=== PATIENT | male | born 1990 | race African-American/Black ===

== ENCOUNTER 2017-08-27 09:36 | Observation (INO) | payer OTHER ==
[~2017-08-27 09:36] MED LIST: ISOVUE-370 76%-LOCM 1 ML ONE
[2017-08-27 10:08] LABS: #Eosinphils 0.1 thou/uL (0.0-0.7); #Lymphocytes 3.3 thou/uL (1.20-3.40); #Monocytes 1.3 thou/uL (0.11-0.59); %Basophils 0.2 % (0.0-1.0); %Eosinophils 0.3 % (0.0-10.0); %Lymphocytes 16.8 % (21.0-51.0); %Monocytes 6.6 % (0.0-10.0); %Neutrophils 76.2 % (42.0-75.0); Hemoglobin 12.1 g/dL (14.0-18.0); Mean Corpuscular Hemoglobin 30.5 pg (27.0-31.0); Mean Corpuscular Volume 92.2 fl (80.0-94.0); Mean Platelet Volume 6.5 fL (7.4-10.4); Platelet Count 367 thou/uL (130-400); RBC Distribution Width 14.2 % (11.5-14.5); Red Blood Cell (RBC) Count 3.96 mill/uL (4.70-6.10); White Blood Cell (WBC) Count 19.7 thou/uL (4.8-10.8)
[2017-08-27 10:31] LABS: ALT (SGPT) 8 U/L (8-55); AST (SGOT) 11 U/L (5-34); Albumin 3.6 g/dL (3.5-5.0); Alkaline Phosphatase 69 U/L (40-150); Anion Gap 12 mmol/L (10-20); BUN (Urea Nitrogen) 11 mg/dL (8.9-20.6); Bilirubin, Total 0.4 mg/dL (0.2-1.2); Calc. Creatinine Clearance 0 mL/min (70-130); Calcium 9.2 mg/dL (7.8-10.44); Carbon Dioxide 25 mmol/L (22-29); Chloride 101 mmol/L (98-107); Estimated GFR-MDRD Greater than 90; Globulin 3.8 g/dL (2.4-3.5); Glucose 91 mg/dL (70-105); Potassium 3.4 mmol/L (3.5-5.1); Protein, Total 7.4 g/dL (6.0-8.3); Sodium 135 mmol/L (136-145)
[2017-08-27] MEDS ORDERED: Morphine 4 MG/ML VIAL ONE (10:36)
[2017-08-27] MEDS ORDERED: Piperacillin/Tazobactam 4.5 GM in Sodium Chloride 0.9% 100 ML IVPB SCH (12:45)
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
[2017-08-27] MEDS ORDERED: HYDROmorphone 0.5 MG/0.5 ML SYRINGE ONE ×5 (13:35→19:34)
[2017-08-27 15:32] LABS: INR-International Normal Ratio 1.2; PTT 37.9 SEC (22.9-36.1); Prothrombin Time 15.4 SEC (12.0-14.7)
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
[2017-08-27] MEDS: Sodium Chloride 0.9% 1,000 ML IV SCH (22:30)
[2017-08-27] MEDS ORDERED: Dextrose 50% Abboject 50 ML SYRINGE SLOW IVP PRN (22:35)
[2017-08-27] MEDS ORDERED: Ondansetron HCl/PF 4 MG/2 ML Vial IVP PRN (22:35)
[2017-08-27] MEDS ORDERED: Ondansetron ODT 4 MG TAB PO PRN (22:35)
[2017-08-27] MEDS ORDERED: Dextrose 5% in Water 1,000 ML IV PRN (22:35)
[2017-08-27 22:50] VITALS: BMI 25.8
[2017-08-27] MEDS ORDERED: Famotidine 20 MG TAB PO SCH (23:15)
[2017-08-27] MEDS: Morphine 2 MG/ML SYRINGE IVP PRN (23:17)
[2017-08-27] MEDS: Ketorolac Tromethamine 30 MG/ML VIAL IVP SCH (23:19)
--- NOTE | 2017-08-27 23:37 | PRG ---
DATE OF SERVICE: 08/27/2017 SUBJECTIVE: This is a 26-year-old gentleman who was admitted by our service earlier today for concer ns of a right lower quadrant abscess. The patient is awaiting admission to surgical floor at this [facility]. He states the pain is stable. He has received IV antibiotics and IV fluids. He vocalized no co mplaints this evening. OBJECTIVE: VITAL SIGNS: Reviewed and stable. GENERAL: The patient is resting in bed, in no acute distress. LUNGS: Breathing is nonlabored. ABDOMEN: Soft with right lower quadrant tenderness. No signs of peritonitis. No guarding or rigidi ty. ASSESSMENT AND PLAN: As documented in the history and physical. Continue care as ordered. He is to have IR drain placement tomorrow. Patient will be n.p.o. after midnight.
[2017-08-28] MEDS: Piperacillin/Tazobactam 4.5 GM in Sodium Chloride 0.9% 100 ML IVPB SCH ×3 (00:06→12:50)
[2017-08-28] MEDS: Sodium Chloride 0.9% 1,000 ML IV SCH (05:28)
[2017-08-28] MEDS: Ketorolac Tromethamine 30 MG/ML VIAL IVP SCH ×3 (05:29→19:52)
[2017-08-28 06:23] LABS: Anion Gap 10 mmol/L (10-20); BUN (Urea Nitrogen) 7 mg/dL (8.9-20.6); Calc. Creatinine Clearance 199 mL/min (70-130); Calcium 8.9 mg/dL (7.8-10.44); Carbon Dioxide 26 mmol/L (22-29); Chloride 104 mmol/L (98-107); Estimated GFR-MDRD Greater than 90; Glucose 85 mg/dL (70-105); Potassium 3.9 mmol/L (3.5-5.1); Sodium 136 mmol/L (136-145)
[2017-08-28 06:45] LABS: Band 1 % (5-11); Hemoglobin 11.1 g/dL (14.0-18.0); Lymphocytes 22 % (21-51); MDiff Complete? YES; Mean Corpuscular HGB CONC 32.6 g/dL (32.0-36.0); Mean Corpuscular Hemoglobin 29.9 pg (27.0-31.0); Mean Corpuscular Volume 91.5 fl (80.0-94.0); Mean Platelet Volume 6.8 fL (7.4-10.4); Monocytes 7 % (0-10); Neutrophil 70 % (42-75); Platelet Count 384 thou/uL (130-400); RBC Distribution Width 13.8 % (11.5-14.5); Red Blood Cell (RBC) Count 3.72 mill/uL (4.70-6.10); White Blood Cell (WBC) Count 20.1 thou/uL (4.8-10.8)
[2017-08-28] MEDS ORDERED: FLU VACC QS2017-18 36 mo. & older 0.5 ML SYRINGE IM ONE (09:00)
[2017-08-28] MEDS ORDERED: Famotidine 20 MG TAB PO SCH (09:00)
[2017-08-28] MEDS ORDERED: Fentanyl 100 MCG/2 ML VIAL ONE (09:09)
[2017-08-28] MEDS ORDERED: Sodium Bicarbonate 2.4 MEQ/5 ML ONE (09:09)
[2017-08-28] MEDS ORDERED: Midazolam HCl 2 mg/2 ml Vial ONE (09:09)
[2017-08-28] MEDS: Morphine 2 MG/ML SYRINGE IVP PRN (09:19)
[2017-08-28 12:18] VITALS: BP 110/68; TEMP 99.3
[2017-08-28 12:22] LABS: Body Fluid Source PERITONEAL FLUID; Clarity Cloudy/Turbid (Clear)
[2017-08-28 12:25] LABS: BF Color Brown; RBC Background Count 0.002
[2017-08-28 12:26] LABS: RBC Count-Automated 853000 /cumm
[2017-08-28 12:35] LABS: BF WBC/Nonhematics Ct. - Manua 560000 /cumm
[2017-08-28 13:47] LABS: BF Segmented Neutrophils 92 %; Cell Count Non Hematic 7 %; Lymphocytes 1 %
--- NOTE | 2017-08-28 13:55 | ULT ---
GALLBLADDER ULTRASOUND: INDICATIONS: Right-sided abdominal pain. Free fluid of the abdomen. Status post aspiration of right lower quadra nt abscess. FINDINGS: There is distention of the gallbladder. No shadowing cholelithiasis. The gallbladder wall is within normal limits at 2 mm. There is nonspecific mild ascites. The common duct is normal, measuring 4 m m. White sign is reported as negative. No focal hepatic lesion. IMPRESSION: 1. Nonspecific mild ascites. Correlate clinically. 2. No cholelithiasis or acute cholecystitis evident sonographically. POS: [facility]
[2017-08-28] MEDS ORDERED: traMADol HCl 50 MG TAB PO PRN ×2 (14:04)
--- NOTE | 2017-08-29 12:26 | CT ---
CT GUIDED PERCUTANEOUS ABSCESS ASPIRATION: CLINICAL HISTORY: Persistent abscess of the right lower quadrant with progressive pain. COMPARISON: Reference is made to a preceding CT exam from 08/27/2017. PROCEDURE: Informed consent was obtained. The patient was escorted to the procedural suite. Certified Wellness Program Coordinator imaging was performed, which did reveal interval development of abnormal inflammatory ascites of the right abdome n, centered within the upper to mid right abdomen, new from CT exam from the previous day. The epice nter of the inflammatory fluid is not present about the abscess of interest. Therefore, prior to the procedure, these findings were telephoned to the patient's surgeon, Alcon Faustin D.O., who request ed to continue with the abscess aspiration, as was previously ordered. This was also explained to th e patient prior to the procedure. After informed consent had been obtained, the right lower quadrant ventral abdominal wall was prepped and draped in the standard sterile fashion. Topical anesthesia with buffered 1% Lidocaine was perfo rmed. The patient was administered conscious sedation through the radiology nurse (Vern Barahona RN ) and monitored accordingly, in stable condition, throughout the duration of the procedure. A small skin incision was made at the site of interest and, subsequently, a 20 gauge needle was advanced with CT fluoroscopy to the leading edge of the abscess. The abscess was then penetrated with a needle an d approximately 50 mL of opaque, light-brown fluid was aspirated. This was placed into a sealed, nisha rile container, and a portion was sent to the laboratory for further analysis. All devices were removed from the patient. Imaging, post procedure, was performed, which revealed no evidence of complications. The abscess collection was decreased in volume, status post drainage. Given the inflammatory findings of the upper to mid abdomen, the patient will undergo follow-up imagi ng, to include gallbladder ultrasound, given the degree of inflammatory fluid about the gallbladder f dorys. IMPRESSION: Technically successful CT guided drainage of right lower quadrant abscess. Laboratory results are pe nding. CODE CR
== END 2017-08-28 18:30 | disposition home or self-care (01) ==
LOC: ERS 09:36 → SURG B 14:42
PROVIDERS: ADMIT Surgery; ATTEND Surgery
PROC: 0W9G3ZX Drainage of Peritoneal Cavity, Percutaneous Approach, Diagnostic (ICD-10-PCS; principal; 2017-08-28)
DX: K65.1 Peritoneal abscess (principal); B96.20 Unspecified Escherichia coli [E. coli] as the cause of diseases classified elsewhere; F17.210 Nicotine dependence, cigarettes, uncomplicated; D72.829 Elevated white blood cell count, unspecified; Z83.3 Family history of diabetes mellitus; Z90.3 Acquired absence of stomach [part of]; Z90.49 Acquired absence of other specified parts of digestive tract; Z98.890 Other specified postprocedural states
CPT/HCPCS: 36415; 49020; 74177; 76705; 77002; 80048; 80053; 82274; 83605; 85025; 85060; 85610; 85730; 87070; 87076; 87077; 87186; 87205; 88173; 89051; 90471; 90682; 96361; 96365; 96366; 96375; 96376; 99156; 99157; G0008; G0378; J1170; J1885; J2250; J2270; J2405; J2543; J3010; J7050; Q2036

== ENCOUNTER 2017-09-01 08:57 | Inpatient (IN) | payer OTHER ==
[2017-09-01 09:33] LABS: Hemoglobin 11.1 g/dL (14.0-18.0); Mean Corpuscular HGB CONC 33.6 g/dL (32.0-36.0); Mean Corpuscular Hemoglobin 30.6 pg (27.0-31.0); Mean Corpuscular Volume 90.9 fl (80.0-94.0); Mean Platelet Volume 6.9 fL (7.4-10.4); Platelet Count 593 thou/uL (130-400); RBC Distribution Width 14.3 % (11.5-14.5); Red Blood Cell (RBC) Count 3.65 mill/uL (4.70-6.10); White Blood Cell (WBC) Count 19.1 thou/uL (4.8-10.8)
[2017-09-01 09:59] LABS: Anisocytosis SLIGHT = 6-15 cells (100X) (0-5/hpf); Band 21 % (5-11); Lymphocytes 3 % (21-51); MDiff Complete? YES; Monocytes 5 % (0-10); Neutrophil 71 % (42-75); PLT Morphology Comment Appears Increased
[2017-09-01 10:21] LABS: ALT (SGPT) 14 U/L (8-55); AST (SGOT) 23 U/L (5-34); Albumin 3.3 g/dL (3.5-5.0); Alkaline Phosphatase 90 U/L (40-150); Anion Gap 16 mmol/L (10-20); BUN (Urea Nitrogen) 8 mg/dL (8.9-20.6); Bilirubin, Total 0.3 mg/dL (0.2-1.2); Calc. Creatinine Clearance 0 mL/min (70-130); Calcium 9.3 mg/dL (7.8-10.44); Carbon Dioxide 23 mmol/L (22-29); Chloride 96 mmol/L (98-107); Estimated GFR-MDRD Greater than 90; Globulin 5.2 g/dL (2.4-3.5); Glucose 112 mg/dL (70-105); Potassium 4.2 mmol/L (3.5-5.1); Protein, Total 8.5 g/dL (6.0-8.3); Sodium 131 mmol/L (136-145)
[2017-09-01] MEDS ORDERED: Ondansetron HCl/PF 4 MG/2 ML Vial ONE (10:27)
[2017-09-01] MEDS ORDERED: Morphine 4 MG/ML Carpuject ONE (10:27)
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
[2017-09-01] MEDS ORDERED: diphenhydrAMINE 50 MG/ML VIAL ONE (10:46)
[2017-09-01] MEDS ORDERED: Iopamidol 370 76% 100 ML VIAL ONE (11:54)
[2017-09-01] MEDS ORDERED: Piperacillin/Tazobactam 4.5 GM in Sodium Chloride 0.9% 100 ML IVPB SCH (12:00)
[2017-09-01] MEDS ORDERED: Dextrose 5% in Water 1,000 ML IV PRN (13:05)
[2017-09-01] MEDS ORDERED: Dextrose 50% Abboject 50 ML SYRINGE SLOW IVP PRN (13:05)
[2017-09-01] MEDS ORDERED: Acetaminophen 500 MG TAB PO PRN (13:05)
[2017-09-01] MEDS ORDERED: Fentanyl 100 MCG/2 ML VIAL ONE (13:25)
[2017-09-01] MEDS ORDERED: Midazolam HCl 2 mg/2 ml Vial ONE (13:25)
[2017-09-01 14:16] LABS: Bilirubin Negative (Negative); Blood, Urine Negative (Negative); Clarity CLEAR (Clear); Glucose, Urine (Dipstick) Negative (Negative); Leukocyte Trace (Negative); Nitrite Negative (Negative); Protein, Urine (Dipstick) 30 mg/dL (Neg-Trace); Urobilinogen 0.2 mg/dL (0.2-1.0); pH, Urine 6.5 (5.0-9.0)
[2017-09-01 14:18] LABS: Bacteria/HPF None Seen HPF (None Seen); Hyaline Casts/LPF 0-3 HYALINE CAST LPF (0-3 Hyaline); Pathc Cast-AUWi Flag 0.13 (0-2.49); Squamous Epithelial 0-3 HPF (0-3)
[2017-09-01 14:19] LABS: Specific Gravity, Urine Greater than 1.060 (1.002-1.036)
[2017-09-01 14:37] LABS: Renal Epithelial None Seen HPF (0-3); Transitional Epithelial NONE SEEN HPF (0-3)
[2017-09-01 16:00] LABS: Clarity Cloudy/Turbid (Clear)
[2017-09-01 16:01] LABS: RBC Count-Automated 1265000 /cumm; Tube # EDTA; WBC/NonHematic-Auto 850300 /cumm
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
[2017-09-01] MEDS: Sodium Chloride 0.9% 1,000 ML IV SCH ×2 (17:22→20:17)
[2017-09-01 17:34] VITALS: BMI 25.7
[2017-09-01] MEDS ORDERED: traMADol HCl 50 MG TAB ONE (18:19)
[2017-09-01] MEDS: Piperacillin/Tazobactam 3.375 GM in Sodium Chloride 0.9% 100 ML IVPB SCH ×2 (18:25→23:47)
[2017-09-01] MEDS: traMADol HCl 50 MG TAB PO PRN (18:30)
[2017-09-01] MEDS ORDERED: traMADol HCl 50 MG TAB PO PRN (19:17)
[2017-09-01] MEDS: Famotidine/PF 20 mg/2ml Vial SLOW IVP SCH (20:17)
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
[2017-09-02 05:52] LABS: Anion Gap 16 mmol/L (10-20); BUN (Urea Nitrogen) 6 mg/dL (8.9-20.6); Calc. Creatinine Clearance 201 mL/min (70-130); Calcium 8.7 mg/dL (7.8-10.44); Carbon Dioxide 23 mmol/L (22-29); Chloride 102 mmol/L (98-107); Estimated GFR-MDRD Greater than 90; Glucose 87 mg/dL (70-105); Potassium 3.5 mmol/L (3.5-5.1); Sodium 137 mmol/L (136-145)
[2017-09-02] MEDS: traMADol HCl 50 MG TAB PO PRN ×2 (06:15→12:58)
[2017-09-02] MEDS: Piperacillin/Tazobactam 3.375 GM in Sodium Chloride 0.9% 100 ML IVPB SCH (06:15)
[2017-09-02] MEDS: Sodium Chloride 0.9% 1,000 ML IV SCH (06:16)
[2017-09-02 06:32] LABS: Band 7 % (5-11); Eosinophils 2 % (0-10); Hemoglobin 9.2 g/dL (14.0-18.0); Hypochromia SLIGHT = 6-15 cells (100X) (0-5/hpf); Lymphocytes 15 % (21-51); MDiff Complete? YES; Mean Corpuscular HGB CONC 31.5 g/dL (32.0-36.0); Mean Platelet Volume 7.1 fL (7.4-10.4); Metamyelocyte 1 % (0-0); Monocytes 14 % (0-10); Neutrophil 60 % (42-75); PLT Morphology Comment Appears Increased; Platelet Count 560 thou/uL (130-400); RBC Distribution Width 14.4 % (11.5-14.5); Reactive Lymphocytes 1 % (0-10); Red Blood Cell (RBC) Count 3.17 mill/uL (4.70-6.10); White Blood Cell (WBC) Count 11.8 thou/uL (4.8-10.8)
[2017-09-02] MEDS ORDERED: FLU VACC QS2017-18 36 mo. & older 0.5 ML SYRINGE IM ONE (09:00)
[2017-09-02] MEDS: Famotidine/PF 20 mg/2ml Vial SLOW IVP SCH (10:47)
[2017-09-02 11:52] VITALS: BP 110/72; TEMP 97.5
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
--- NOTE | 2017-09-02 14:59 | PQF ---
CLINICAL DOCUMENTATION IMPROVEMENT CLARIFICATION FORM: ICD-10 Updated PLEASE DO AN ADDENDUM TO THE PROGRESS NOTE WITH ANY DOCUMENTATION UPDATES OR ADDITIONS AND CARRY THROUGH TO DC SUMMARY. THANK YOU. DATE: 09/02/17 ATTN: DR. LAZO Please exercise your independent, professional judgment in responding to the clarification form. Clinical indicators are provided on the bottom of this form for your review Please check appropriate box(s): [ x ] Sepsis due to: (Pna, UTI, gangrenous gall bladder, etc.) intra- abdominal abscess Due to: [ ] Device (please specify) [ ] Implant [ ] Graft [ ] Infusion [ ] SIRS due to non-infectious process (please specify etiology) [ ] with organ dysfunction [ ] without organ dysfunction [ ] Severe sepsis with acute organ dysfunction of: (Examples: respiratory failure, encephalopathy, acute kidney failure, other) [ ] Localized infection without sepsis [ ] Other diagnosis [ ] Unable to determine In addition, please specify: Present on Admission (POA): [ x] Yes [ ] No [ ] Unable to determine For continuity of documentation, please document condition throughout progress notes and discharge summary. Thank You. CLINICAL INDICATORS - SIGNS / SYMPTOMS / LABS ER NOTE: "SEPSIS" WBC 19.1 BANDS 21 TEMP 103 PULSE 117 RISKS: INTRA-ABDOMINAL ABSCESS TREATMENT: IV LEVAQUIN IV ZOSYN IV FLUIDS DRAINAGE OF INTRA-ABDOMINAL ABSCESS (This form is maintained as a part of the permanent medical record) 2014 [employer]. All Rights Reserved Greer Briliglee, RN [email or web address] Office: [phone] [facility] SYSTEMMerary
== END 2017-09-02 13:54 | disposition home or self-care (01) | DRG 871 ==
LOC: ERS 08:57 → SURG A 10:27
PROVIDERS: ADMIT Surgery; ATTEND Surgery
PROC: 0D9W30Z Drainage of Peritoneum with Drainage Device, Percutaneous Approach (ICD-10-PCS; principal; 2017-09-01)
DX: A41.9 Sepsis, unspecified organism (principal); K65.1 Peritoneal abscess; K27.9 Peptic ulcer, site unspecified, unspecified as acute or chronic, without hemorrhage or perforation; Z90.3 Acquired absence of stomach [part of]; B96.20 Unspecified Escherichia coli [E. coli] as the cause of diseases classified elsewhere; S36.99 Other injury of unspecified intra-abdominal organ; W34.00XD Accidental discharge from unspecified firearms or gun, subsequent encounter
CPT/HCPCS: 36415; 49020; 74177; 77002; 80048; 80053; 81003; 81015; 83605; 85025; 85060; 87040; 87070; 87077; 87186; 87205; 89051; 93005; 96361; 96365; 96367; 96375; C1729; J1200; J1956; J2250; J2270; J2405; J2543; J3010; J7050; S0028

== ENCOUNTER 2017-09-17 11:45 | Emergency (ER) | payer OTHER ==
[2017-09-17] MEDS ORDERED: Bacitracin Zinc 1 Packet ONE (12:16)
== END 2017-09-17 12:27 | disposition home or self-care (01) ==
LOC: ERS 11:45
DX: Z46.6 Encounter for fitting and adjustment of urinary device (principal)
CPT/HCPCS: 99282